=== PATIENT | female | born 1950 | race Caucasian/White ===

== ENCOUNTER → 2018-04-12 | Outpatient (CLI) | payer OTHER ==
[~2018-04-12] MED LIST: ACEDIPPM PO; ALBU90OI INH; ALLERGY RELIEF1 EAC1 PO; ATOR40TA PO; AZIT250 PO; Aerochamber1 EACH MC; Aspirin EC81 MG PO; Benicar Hct 401 EAC1 PO; CALCA500CH PO; CHOL10002 PO; CODGUAEL PO; Calcium Magnes1 EAC1 PO; DOCU100 PO; FERR325 PO; FERRETTS325 MG; FURO20 PO; GABA300 PO; METF500C PO; METO25ER PO; MONT10T PO; MULVITB&C PO; OTC ACID REDUCER; Prilosec Otc20 MG PO; RANI150 PO; SODCHL.65S; TUMS DUAL ACTI1 EACH PO
== END ==
LOC: LAB SHORT 14:33 → LAB 14:33
DX: E11.9 Type 2 diabetes mellitus without complications (principal)
CPT/HCPCS: 82043

== ENCOUNTER → 2018-04-25 | Outpatient (CLI) | payer OTHER ==
[2018-04-25 15:59] LABS: Alanine Aminotransfer (ALT/SGP 24 U/L (12-78); Albumin, Blood 3.4 g/dL (3.4-5.0); Alk Phos 88 U/L (50-136); Anion Gap 12 mmol/L (6-16); Aspartate Aminotrans (AST/SGOT 16 U/L (12-37); Bilirubin, Total 0.5 mg/dL (0.1-1.0); Blood Urea Nitrogen 15 mg/dL (8-24); Bun/Creatinine Ratio 19.4 (12.0-20.0); CHOL/HDL RATIO 2.2; CO2, Blood 23 mmol/L (21-32); Chloride, Blood 94 mmol/L (98-108); Cholesterol 101 mg/dL (50-200); Creatinine, Blood 0.77 mg/dL (0.40-1.00); Globulin, Blood 3.5 g/dL (2.2-4.0); Glomerular Filtration Rate >60 (60-); Glucose, Blood 89 mg/dL (70-99); HDL Cholesterol 45 mg/dL (>39); LDL/HDL RATIO 0.8; Low Density Lipoprotein Chol 38 mg/dL (0-110); Potassium, Blood 4.3 mmol/L (3.5-5.5); Sodium, Blood 129 mmol/L (136-145); Total Protein, Blood 6.9 g/dL (6.4-8.2); Triglycerides 90 mg/dL (30-160); Very Low Density Lipoprot Chol 18 mg/dL (6-32)
== END | disposition home or self-care (01) ==
LOC: LAB SHORT 08:24 → LAB 08:24
PROVIDERS: Nurse Practitioner Primary Care
DX: Z13.89 Encounter for screening for other disorder (principal)
CPT/HCPCS: 36415; 80053; 80061; 84443

== ENCOUNTER 2019-08-17 09:37 | Day surgery (SDC) | payer OTHER ==
[~2019-08-17] VITALS: Ht 167.6 cm; Wt 106.0 kg
[~2019-08-17 09:37] MED LIST changes: +ALLERGY RELIEF1 EAC2 PO; +ATOR40TA; +CALCIUM-MAGNES1 EAC3 PO; +Cymbalta20 MG PO; +DEEP SEA44 ML; +Ferrous Sulfat325 MG PO; +METFORMIN HCL500 MG PO; +METOPROLOL SUCC25 MG PO; +OMEP20ER PO; +Singulair10 MG PO; +TUMS ULTRA ST1177 MG PO; +VITAMIN D350 MCG PO
--- NOTE | 2019-08-17 10:56 | NUR ---
08/17/19 1056 Delores Krishna FIRST IV WAS IN RIGHT HAND
[2019-08-20] MEDS ORDERED: CLON.5 PO (15:15)
[2019-08-20] MEDS ORDERED: TOPROL XL25 MG PO (15:15)
[2019-08-20] MEDS ORDERED: GABA400 PO (15:16)
== END 2019-08-17 12:39 | disposition home or self-care (01) ==
LOC: ORSCSDS 09:37
PROVIDERS: Surgery
PROC: 0DJ08ZZ Inspection of Upper Intestinal Tract, Via Natural or Artificial Opening Endoscopic (ICD-10-PCS; principal; 2019-08-17 11:30)
DX: G90.3 Multi-system degeneration of the autonomic nervous system (principal); R13.14 Dysphagia, pharyngoesophageal phase; K44.9 Diaphragmatic hernia without obstruction or gangrene; K21.9 Gastro-esophageal reflux disease without esophagitis; E11.9 Type 2 diabetes mellitus without complications; Z79.84 Long term (current) use of oral hypoglycemic drugs; Z79.899 Other long term (current) drug therapy
CPT/HCPCS: 82947; J0690; J2704

== ENCOUNTER 2019-08-21 09:03 | Inpatient (IN) | payer OTHER ==
[~2019-08-21] VITALS: Ht 167.6 cm; Wt 89.1 kg
[~2019-08-21 09:03] MED LIST changes: +CLON.5 PO; +GABA400 PO; +TOPROL XL25 MG PO
--- NOTE | 2019-08-21 10:37 | NUR ---
Ambulatory in Day Surgery. Surgical site prepped with 2% Chlorhexidine cloth wipe. Lungs clear T/O to Auscultation Pre-Op teaching done. Pt verbalizes understanding. Patient States Post-Procedure ride home has been arranged. THE PATIENT WAS TRANSFERRED TO ROOM #230 TO WAIT FOR SURGERY THAT WAS POSPONED DUE TO PATIENT EATING THIS MORING AT 0600. REPORT WAS GIVEN TO SURGERY FLOOR NURSE, GAMAL ANNE AT THE TIME THE PATIENT WAS DELIVERED TO THE FLOOR, AT 1030 AM.
--- NOTE | 2019-08-21 11:04 | NUR ---
ARRIVAL TO UNIT ARRIVAL TO UNIT FROM DAY SURGERY. NPO UNTIL PROCEDURE WHICH IS SCHEDULED AT APPROX 1400. LR IVF RUNNING AT TKO PER DAY SURGERY. DAY SURGERY RN VERBALIZED NOT TO GIVE THE ABX--TO BE GIVEN IN OR PER DR ORDERS. PT ABLE TO STAND FROM GURNEY TO BED WITH 1 SBA. PT DOES HAVE EXPRESSIVE APHASIA AND COMMUNICATES NEEDS WITH A NOTEPAD. AT BEDSIDE FOR SUPPORT. ORIENTED TO UNIT AND CALL LIGHT. CALL LIGHT WITHIN REACH.
--- NOTE | 2019-08-21 13:38 | NUR ---
PT BEING PICKED UP BY DAY SURGERY. CHART AND ABX SENT WITH DAY SURGERY RN.
--- NOTE | 2019-08-21 14:15 | NUR ---
PT RETURNED TO [facility] FOR SURGERY. PT ALERT AND ORIENTED BUT COMMUNICATES WRITING ON PAPER.
--- NOTE | 2019-08-21 19:05 | NUR ---
recvd report from previous shift GAMAL Singh. pt sitting in chair, a/o x 4, non-verbal with writing pad. call light within reach, chair alarm in place.
--- NOTE | 2019-08-22 | NUR ---
while pt was standing to walk into the bathroom, BUSINESS PROCESS ANALYST assisting noticed the J-tube tubing on the floor. Upon assessment, drain completely out, dressing in place. notifed MD, received orders to attempt reinsertion, determine if J-tube will reinsert without resistance. If this is the case, place J-Tube and secure. If tube will not reinsert, notify MD. Both clinical coordinator and this RN attempt reinsertion, meeting resistance, tubing felt to be coiling. DIscontinued attempt, place sterile dressing over site, notifed MD who will surgically replaced J-tube with add-on procedure. received orders for IV abx and DC blood thinner
--- NOTE | 2019-08-22 05:43 | NUR ---
SHIFT SUMMARY: VSS, NO ACUTE CHANGES, PT REMAINED A/O X 4, NONVERBAL USING PAD TO COMMUNICATE. SEE NOT REGARDING J-TUBE DETACHING. J-TUBE SITE REMAINED WNL. PT DENIES PAIN AT SIDE. PT WITH HEADACHE THIS SHIFT, MEDICATED PER NOV. PT VOIDING >500 ML YELLOW CLEAR URINE, STANDBY ASSIST TO BATHROOM. NO N/V. REMAINED NPO T/O SHIFT. PT STATES SHE FEELS "UNCOMFORTABLE" AND FEELS SOB, CANNOT LIFT HER HEAD. PROVIDED PT WITH O2 VIA NC, REPOSITIONED MULTIPLE TIMES IN ATTEMPTS TO HELP PT FEEL COMFORTABLE. PT CURRENTLY SLEEPING SITTING UP IN BED
--- NOTE | 2019-08-22 13:32 | NUR ---
PT TO DAY SURGERY
--- NOTE | 2019-08-22 14:49 | NUR ---
08/22/19 1449 Christian Aguilera PATIENT ON SCHEDULED ANTIBIOTICS
--- NOTE | 2019-08-22 16:52 | NUR ---
SHIFT SUMMARY PT CURRENTLY STILL IN OR FOR J TUBE PLACEMENT. PRE-OPERATIVELY, PT WAS A+O. COMMUNICATING NEEDS BY WRITING ON NOTEPAD R/T HAVING HX OF EXPRESSIVE APHASIA. 1 MINIMAL ASSIST WHEN OOB. DENIED PAIN + N/V. AT BEDSIDE FOR SUPPORT. CALL LIGHT WITHIN REACH.
--- NOTE | 2019-08-22 17:52 | NUR ---
1730- PT SLIGHTLY AGITATED AND WANTING TO SIT UP. WROTE "HELP" ON NOTEPAD. WITHIN SECONDS PT COLOR BECAME VERY PALE AND SATS DROPPED DOWN TO 26% BAG MASK VENTILATIONS STARTED AND CODE 4 CALLED. HEART RATE STRONG AND REGULAR. QUICK RETURN OF SPONTANEOUS RESPIRATIONS. 1736-PT PLACED ON 5L O2 PER NC BY RT. 1745-O2 SAT 95% ON 5L/NC. RESP RATE 95%
--- NOTE | 2019-08-22 17:55 | NUR ---
UPDATED PT'S SPOUSE SHAHIDA ON BEING TRANSFERRED TO ROOM ICU 9 POST OP. WILL CALL AND GIVE ICU REPORT AND TAKE PT'S PERSONAL BELONGINGS TO ICU 9.
--- NOTE | 2019-08-22 18:24 | NUR ---
REPORT GIVEN TO JN YEUNG ICU. PT PERSONAL BELONGINGS AND MEDICATIONS BROUGHT TO ROOM ICU 9.
--- NOTE | 2019-08-22 18:25 | NUR ---
PT TO UNIT FROM OR POST CODE BLUE FOR RESP ISSUES. PT ARRIVES ON 3L O2 VIA NC, O2 SATS MID 90'S. PT NON VERBAL. USES PAD TO WRITE. WRITES THAT HER MOUTH IS DRY. DENIES PAIN. REPORTS SOB WHEN LAYING FLAT. POSITIONED FOR COMFORT. LUNGS DIMINISHED IN BASES, CLEAR IN UPPER LOBES. SHALLOW RESP. DRESSINGS TO ABD, C/D/I. J TUBE TO LEFT ABD, CAPPED. FLIGHT TEST ENGINEER BROUGHT TUBE FEEDS FROM FLOOR. WILL CONSULT c SURGEON PRIOR TO STARTING TUBE FEEDS. ELECTRICAL ENGINEERING TECHNICIAN CONSULTED, INTERFACE DESIGNER NOTIFIED. VSS. REPORT TO ONCOMING NURSE.
[2019-08-22 20:29] LABS: BASOPHILS ABSOLUTE AUTO 0.01 K/mm3 (0.00-0.23); BASOPHILS PERCENT AUTO 0 % (0-2); EOSINOPHILS PERCENT AUTO 0 % (0-6); Hematocrit 37.9 % (33.0-51.0); Hemoglobin 11.6 g/dL (11.5-16.0); IMMATURE GRAN ABSOLUTE AUTO 0.07 K/mm3 (0.00-0.10); IMMATURE GRAN PERCENT AUTO 1 % (0-1); LYMPHOCYTES ABSOLUTE AUTO 0.64 K/mm3 (0.84-5.20); LYMPHOCYTES PERCENT AUTO 5 % (21-46); MONOCYTES ABSOLUTE AUTO 1.36 K/mm3 (0.16-1.47); MONOCYTES PERCENT AUTO 10 % (4-13); Mean Corpuscular HGB 28.9 pg (26.0-34.0); Mean Corpuscular HGB Conc 30.6 g/dL (31.5-36.5); Mean Corpuscular Volume 95 fL (80-100); Mean Platelet Volume 9.5 fL (9.1-12.4); NEUTROPHILS ABSOLUTE AUTO 11.53 K/mm3 (1.96-9.15); NEUTROPHILS PERCENT AUTO 85 % (41-73); Platelet Count 306 K/mm3 (150-400); RDW Coefficient Variation 14.3 % (11.7-14.2); RDW Standard Deviation 49.7 fL (35.1-46.3); Red Blood Cell Count 4.01 M/mm3 (3.80-5.20); White Blood Cell Count 13.61 K/mm3 (4.00-11.30)
[2019-08-22 20:45] LABS: Anion Gap 3 mmol/L (6-16); Blood Urea Nitrogen 21 mg/dL (8-24); Bun/Creatinine Ratio 37.2 (12.0-20.0); CO2, Blood 33 mmol/L (21-32); Calcium, Blood 9.3 mg/dL (8.5-10.1); Chloride, Blood 102 mmol/L (98-108); Creatinine, Blood 0.56 mg/dL (0.40-1.00); Glomerular Filtration Rate >60 (60-); Glucose, Blood 119 mg/dL (70-99); Potassium, Blood 4.4 mmol/L (3.5-5.5); Sodium, Blood 138 mmol/L (136-145)
[2019-08-22 21:15] LABS: Base Excess Venous 6.5 mmol/L; PCO2 Venous 80.2 mmHg (38-42); PO2 Venous 58.1 mmHg (38-42)
[2019-08-22 21:16] LABS: pH Blood Venous 7.24 (7.34-7.37)
--- NOTE | 2019-08-22 21:26 | NUR ---
ASSUME CARE PT ALERT, COMMUNICATES WITH NOTEPAD AND MARKER. FOLLOWS COMMANDS. PT ABDOMINAL DRESSINGS C/D/I. NO COMPLAINTS OF PAIN. PT MADE NPO PER SENIA JONES. PT SATS ABOVE 92% ON 3L NC. SKIN INTACT, SOME REDNESS NOTED ON GLUTEAL FOLDS. HR 120S. AFEBRILE. WILL CONTINUE TO MONITOR
--- NOTE | 2019-08-22 21:37 | NUR ---
RESP STATUS VENOUS BG CRITICAL PH 7.24. PULMONONOLOGIST NOTIFIED. BIPAP ORDERED. PT REFUSING. PT CURRENTLY AT 3L NC SATS 96%, NO INCREASED WOB. WILL CONTINUE TO MONITOR.
[2019-08-23 04:12] LABS: Anion Gap 4 mmol/L (6-16); Blood Urea Nitrogen 21 mg/dL (8-24); Bun/Creatinine Ratio 37.8 (12.0-20.0); CO2, Blood 34 mmol/L (21-32); Calcium, Blood 9.3 mg/dL (8.5-10.1); Chloride, Blood 101 mmol/L (98-108); Creatinine, Blood 0.56 mg/dL (0.40-1.00); Glomerular Filtration Rate >60 (60-); Glucose, Blood 90 mg/dL (70-99); Magnesium, Blood 1.6 mg/dL (1.6-2.4); Phosphorus, Blood 2.6 mg/dL (2.5-4.9); Potassium, Blood 4.4 mmol/L (3.5-5.5); Sodium, Blood 139 mmol/L (136-145)
--- NOTE | 2019-08-23 06:13 | NUR ---
SHIFT SUMMARY PT ALERT, FC. COMPLAINING OF HEART BURN ( SAYS ITS A CHRONIC ISSUE). PT ON AIRVO 35L, 40% AND TOLERATING WELL. SATS ABOVE 95%. HR 110-120S THROUGHOUT SHIFT. AFEBRILE. WILL CONTINUE TO MONITOR UNTIL SHIFT REPORT TO DAY NURSE.
--- NOTE | 2019-08-23 07:30 | NUR ---
ASSUMED CARE AT 0700. REPORT FROM PEREZ YEUNG. PT RESTING IN BED. WAKES c VERBAL STIMULI. COMMUNICATES THOUGH MOTIONING AND WRITING. C/O MOUTH BEING DRY. SWABS PROVIDED. PT ON AIRVO 35L, 40% FIO2. SATS > 95%. LUNGS DIMINSED IN BASES. DRESSINGS C/D/I TO ABD. J TUBE IN PLACE. ABD ROUND, SOFT, NON TENDER. 2+ EDEMA TO LOWER LEGS BILATERALLY. MAINTAIN NPO STATUS AT THIS TIME. ASSISTED PT TO CHAIR. CALL LIGHT IN REACH. WILL CONTINUE TO MONITOR.
--- NOTE | 2019-08-23 08:42 | NUR ---
DR FOSTER AT BEDSIDE FOR ASSESSMENT. OK'D USE OF J TUBE FOR TUBE FEEDS. REQUESTED THAT FEEDS BE STARTED AT LOWER RATE THAN ORDERED. OK'D FOR FULL LIQUIDS. WILL REMAIN NPO UNTIL DR CEDENO IS CONSULTED. REQUESTED HOSP CONSULT IF PT TRANSFERRED OUT OF ICU.
[2019-08-23 09:01] LABS: BASOPHILS ABSOLUTE AUTO 0.02 K/mm3 (0.00-0.23); BASOPHILS PERCENT AUTO 0 % (0-2); EOSINOPHILS PERCENT AUTO 0 % (0-6); Hematocrit 36.8 % (33.0-51.0); Hemoglobin 11.2 g/dL (11.5-16.0); IMMATURE GRAN ABSOLUTE AUTO 0.04 K/mm3 (0.00-0.10); IMMATURE GRAN PERCENT AUTO 0 % (0-1); LYMPHOCYTES ABSOLUTE AUTO 0.59 K/mm3 (0.84-5.20); LYMPHOCYTES PERCENT AUTO 6 % (21-46); MONOCYTES ABSOLUTE AUTO 1.05 K/mm3 (0.16-1.47); MONOCYTES PERCENT AUTO 10 % (4-13); Mean Corpuscular HGB 28.9 pg (26.0-34.0); Mean Corpuscular HGB Conc 30.4 g/dL (31.5-36.5); Mean Corpuscular Volume 95 fL (80-100); Mean Platelet Volume 9.7 fL (9.1-12.4); NEUTROPHILS ABSOLUTE AUTO 9.12 K/mm3 (1.96-9.15); NEUTROPHILS PERCENT AUTO 84 % (41-73); Platelet Count 279 K/mm3 (150-400); RDW Coefficient Variation 14.6 % (11.7-14.2); RDW Standard Deviation 50.5 fL (35.1-46.3); Red Blood Cell Count 3.87 M/mm3 (3.80-5.20); White Blood Cell Count 10.82 K/mm3 (4.00-11.30)
--- NOTE | 2019-08-23 09:51 | NUR ---
DR CEDENO AT BEDSIDE FOR ASSESSMENT. CODE STATUS DISCUSSED c PT AND SHAHIDA. PT WISHES TO BE DNR/DNI. PALLATIVE CARE CONSULTED. PLAN FOR TRANSFER TO SURGICAL FLOOR. LICHA BRUCE CALLED FOR CONSULT PER DR FOSTER.
--- NOTE | 2019-08-23 11:58 | NUR ---
REPORT TO [facility] TRANSPLANT NETWORK MANAGER. PT AND ALL BELONGINGS TO ROOM 208. GRETA PINEDO, UPDATED.
--- NOTE | 2019-08-23 15:20 | NUR ---
PT REPORTS DIFFICULTLY BREATHING AT THIS TIME. LUNGS ARE DIM AND CLEAR AT THIS TIME. PT BREATHES SHALLOW, SATS ARE AT 88% ON 2L. INCREASED TO 3L O2. RR IS 24. RESPIRATORY CARE CALLED AND ABHIJIT RT SEEING PT AT THIS TIME
--- NOTE | 2019-08-23 16:00 | NUR ---
BEDSIDE REPORT RECEIVED FROM SURGICAL FLOOR RN. PT WAS TRANSPORTED VIA GURNEY, ASSUMED CARE OF PT. APPARENT S/S RESPIRATORY DISTRESS NOTED, BIPAP MACHINE IN USE, PT TOLERATING WELL. REPOSITIONED FOR COMFORT, CALL LIGHT AND POSSESSIONS IN REACH. AT THE BEDSIDE. DENIES ANY FURTHER NEEDS AT THIS TIME.
--- NOTE | 2019-08-23 16:10 | NUR ---
The pt arrived from surgical floor, bedside report was received from GAMAL Chavira. Pt is presently wearing a vision bipap, 60% fi02 setting 08/10 and respiratory rate is 29-31 bpm. She is tolerating the bipap without any struggle; in fact, she appears to be very relaxed, sitting up right with her eyes opening occasionally. Vital signs taken and documented .
--- NOTE | 2019-08-23 16:15 | NUR ---
TRANSFER TO PCU: PT REPORTED DIFFICULTLY BREATHING AT ABOUT 1530 AFTER BEING EVALUATED BY RT, THIS TIME REPORTING THAT IT IS WORSE. WINDOW DRAPER IS IN ROOM ALONG WITH LORI WEBSTER, UPON THIS RN'S ARRIVAL. WITH ASSESSMENT PT SEEMS TO BE GASPING FOR AIR. PT IS SITTING UP STRAIGHT. SATURATIONS ARE IN THE 80'S, PT SWITCHED FROM NC TO OXIMIZER. O2 SATS NOT MAINTAINED ABOVE 90% WITH OXIMIZER. RR IS 32, SEE VS. SOLEDAD BRUCE NOTIFIED AT THIS TIME AND BIPAP WITH TRANSFER TO PCU ORDERED. RT IN ROOM AND BIPAP STARTED AT ABOUT 1545. REPORT GIVEN TO RHETT SAMUELU RN AT ABOUT 1610 AT BEDSIDE IN PCU1
--- NOTE | 2019-08-23 16:48 | NUR ---
REPORT RECEIVED FROM RESTAURANT ATTENDANT, ALISA. PT TO ROOM 208 AT ABOUT 1205. UPON ASSESSMENT PT IS IN NO VISABLE DISTRESS, SURGICAL SITES WNL. POWERGLIDE FLUSHED AND ANTIBIOTIC GIVEN. PT HAS EXPRESSIVE APHASIA, ABLE TO WRITE ON NOTEPAD THAT SHE FEELS FINE BUT HAS DRY MOUTH. ORAL SWAB GIVEN. PT BP AND HR ARE HIGH, PT HAS A HX, WILL MED PER EMAR. SATS ARE ABOVE 90% ON 3L NC. NO ACUTE SAFETY CONCERNS AT THIS TIME. WILL CTM.
--- NOTE | 2019-08-23 16:54 | NUR ---
ACTIVE ORDER FOR FULL LIQUID DIET. THIS RN CONCERNED THAT PT WILL ASPIRATE IF GIVEN LIQUIDS. DR. FOSTER NOTIFIED OF THIS AT 1237. NEW ORDER FOR SPEECH EVAL ADDED. SEE SPEECH EVAL DOCUMENTATION.
--- NOTE | 2019-08-23 19:31 | NUR ---
Pt arrived from surgical floor room 208 at around 4 pm. Powerglide right arm flushed, noted WNL. The pt tolerated the bipap for 1.5 hours, and then wanted to have a break. She was assisted to the bedside commode while wearing n.c. at 5 l/min and tolerated this while maintaining spo2 greater than 92%. She wanted to get into a recliner chair after this, and she was assisted to do so. At approx 1845 she was assisted back into the bed and was short of breath, so the bipap was again placed on, which she tolerated without display of anxiety or agitation. At this time, she made her wishes known to take a break from the bipap, and is again on nasal cannula delivery of oxgyen at 5 l/min during bedside report, and tolerating it well.
--- NOTE | 2019-08-23 20:46 | NUR ---
PHARMACY CONTACTED PHARMACY FAXED FOR MEDICATION, MEFOXIN, AT APPROXIMATELY 1930 DURING SHIFT CHANGE. UNABLE TO LOCATE IN [place] OR MEDICATION DRAWERS IN PCU, OR SURGICAL FLOOR. MEDICATION SENT @ 2039 AND TO BE GIVEN NOW. CLARIFIED WITH PHARMACIST ABOUT CHANGES IN DOSING R/T LATE ADMINISTRATION. PHARMACY STATES TO GIVE DOSE NOW, GIVE 2400 DOSE @ 0200 AND THEN RESUME NORMAL Q6 SCHEDULE. WILL CONTINUE WITH ADMINISTRATION AND MONITORING.
--- NOTE | 2019-08-24 01:45 | NUR ---
PROVIDER CONTACTED PULSE OXIMETER SOUNDING AND PT FOUND TO BE WITH O2 SATS OF 70% ON 5L VIA NASAL CANNULA. PT APPEARS TO BE SLEEPING DEEPLY, ATTEMPTED TO WAKE PT WITH VERBAL STIMULI, AND THEN WITH PAINFUL STIMULI WITHOUT SUCCESS. BIPAP PLACED ON PATIENT WITH SETTINGS OF 12/6 FIO2 OF 35% INITIALLY, WHICH WAS INCREASED TO 85%. TIDAL VOLUMES <200 WITH THESE SETTINGS. RT TO ROOM WITHIN 3 MINUTES OF BIPAP PLACEMENT. PT REPOSITIONED AND SETTINGS ADJUSTED BY RT TO 18/8 35% FIO2 WITH SATS INCREASING TO >90% WITHIN 5 MINUTES OF ADJUSTMENT. PT STILL NOT ROUSING TO PAINFUL STIMULI OR MOVEMENT, VSS. DR GUEVARA CONTACTED AND UPDATED ON PATIENT CONDITION; ORDERS RECIEVED FOR STAT ABG. WILL INPUT ORDER AND CONTACT RT FOR BLOOD DRAW.
[2019-08-24 01:54] LABS: PO2 Arterial 73.2 mmHg (80-100)
[2019-08-24 01:55] LABS: PCO2 Arterial 85.5 mmHg (35-45); pH Blood Arterial 7.22 (7.35-7.45)
--- NOTE | 2019-08-24 02:00 | NUR ---
CRITICAL VALUE/PROVIDER CONTACTED CRITICAL VALUE ON ABG- SEE CV CHARTING. DR GUEVARA CONTACTED AND UPDATED ON ABG AND SETTING ADJUSTMENT BY RT. PHYSICIAN TO LOOK INTO PT CHART AND HISTORY AND VERBALIZED REPEAT ABG AFTER A FEW HOURS OF BIPAP USE. PT REMAINS LETHARGIC, VITAL SIGNS CURRENTLY STABLE AND O2 SATS REMAINING >90% ON BIPAP WITH SETTINGS OF 18/8 50% FIO2. WILL CONTINUE TO MONITOR CLOSELY.
[2019-08-24 04:43] LABS: BASOPHILS ABSOLUTE AUTO 0.01 K/mm3 (0.00-0.23); BASOPHILS PERCENT AUTO 0 % (0-2); EOSINOPHILS PERCENT AUTO 0 % (0-6); Hematocrit 38.5 % (33.0-51.0); Hemoglobin 11.6 g/dL (11.5-16.0); IMMATURE GRAN ABSOLUTE AUTO 0.23 K/mm3 (0.00-0.10); IMMATURE GRAN PERCENT AUTO 2 % (0-1); LYMPHOCYTES PERCENT AUTO 3 % (21-46); MONOCYTES ABSOLUTE AUTO 1.13 K/mm3 (0.16-1.47); MONOCYTES PERCENT AUTO 9 % (4-13); Mean Corpuscular HGB Conc 30.1 g/dL (31.5-36.5); Mean Corpuscular Volume 96 fL (80-100); NEUTROPHILS ABSOLUTE AUTO 11.23 K/mm3 (1.96-9.15); NEUTROPHILS PERCENT AUTO 86 % (41-73); Platelet Count 284 K/mm3 (150-400); RDW Coefficient Variation 14.7 % (11.7-14.2); RDW Standard Deviation 52.7 fL (35.1-46.3)
[2019-08-24 05:03] LABS: Anion Gap 4 mmol/L (6-16); Blood Urea Nitrogen 26 mg/dL (8-24); Bun/Creatinine Ratio 55.4 (12.0-20.0); CO2, Blood 35 mmol/L (21-32); Calcium, Blood 9.4 mg/dL (8.5-10.1); Chloride, Blood 102 mmol/L (98-108); Creatinine, Blood 0.47 mg/dL (0.40-1.00); Glomerular Filtration Rate >60 (60-); Glucose, Blood 132 mg/dL (70-99); Magnesium, Blood 1.7 mg/dL (1.6-2.4); Phosphorus, Blood 1.9 mg/dL (2.5-4.9); Potassium, Blood 4.1 mmol/L (3.5-5.5); Sodium, Blood 141 mmol/L (136-145)
--- NOTE | 2019-08-24 06:51 | NUR ---
SHIFT SUMMARY PT WITH MENTATION THAT HAS BEEN LABILE THROUGHOUT THE SHIFT. PT WAS INITIALLY AOX3, BUT SHIFTED TO LETHARGIC AND UNRESPONSIVE DURING THE NIGHT. PT IS MORE ALERT THIS AM AND ROUSING TO VERBAL STIMULI AFTER WEARING BIPAP FOR APPROXIMATELY 3-4 HOURS. PT HAS BEEN PLEASANT AND COOPERATIVE WITH CARE THROUHGOUT THE NIGHT. PT WITH HYPERTENSIVE EPISODES LAST NIGHT THAT DECREASED WITH ORDERED MEDICATIONS. O2 SATS HAVE REMAINED >88% ON BIPAP WITH SETTINGS OF 18/8 50% FIO2, NO FURTHER EPISODES OF SIGNIFICANT DESATURATION FROM PREVIOUS EPISODE. CHEST XRAY DONE THIS AM. NO OTHER CHANGES NOTED FROM INITIAL ASSESSMENT .WILL CONTINUE TO MONITOR AND REPORT TO ONCOMING SHIFT RN. BED IN LOW POSITION, CALL LIGHT IN REACH. BED ALARM SET FOR SAFETY.
--- NOTE | 2019-08-24 07:32 | NUR ---
START OF SHIFT NOTE: RECEIVED REPORT FROM GAMAL MARTINES, ASSUMED CARE, ENTERED ROOM AND FOUND O2 ALARMING, UNABLE TO AROUSE PATIENT, REMOVED NASAL CANNULA AND PLACED BIPAP, FiO2 UP TO 100 %, RT NOTIFIED AND IN ROOM, DR JIMENES NOTIFIED, PATIENT UNAROUSEABLE DESPITE STERNAL RUBS, AND HR IN 129'S, PATIENT IS ON TF AT 25 CC/HR WILL INCREASE TO 35 CC/HR WITH GOAL OF 5O CC/HR, PATIENT ALSO ON LR AT 100 CC/HR, PWG AT RIGHT UPPER ARM, DR. JIMENES NOTIFIED, BIPAP SETTINGS ARE 20/8 WITH FiO2 AT 100 %, DR. JIMENES AT BEDSIDE, POSSIBLE TRANSFER TO ICU, PATIENT HAS PEG TUBE IN LLQ, ATTENDS IN PLACE, CALL LIGHT IN REACH, WILL CONTINUE TO MONITOR.
--- NOTE | 2019-08-24 07:57 | NUR ---
PATIENT WILL BE TRANSFERED TO ICU ROOM 11, BEDSIDE REPORT GIVEN TO ANDRESSA BROWN, ICU CHARGE, WILL MOVE PATIENT WITH BED AND BIPAP, WELL IVF AND TUBE FEED.
--- NOTE | 2019-08-24 08:27 | NUR ---
PATIENT TRANSFERRED TO ROOM ICU [address] J[address].
--- NOTE | 2019-08-24 08:57 | NUR ---
TELEPHONE REPORT GIVEN TO BRIAN MURO RN.
--- NOTE | 2019-08-24 09:39 | NUR ---
LEXIE MURO, RN ASSUMED CARE OF PATIENT AFTER RETURN FROM CT SCAN WITH OTHER PATIENT. PATIENT WAS TX'D FROM PCU 1 FOR DECREASED LOC. ON BIPAP WITH FI02 90% BIPAP SETTINGS IPAP 20; EPAP 8. BACK UP RR RATE OF 14. WHILE PERFORMING ORAL CARE, THIS RN NOTED GREEN ASPIRATE IN BACK OF THROAT. IT ALSO LOOKED LIKE PATIENT WAS OCCLUDING HER AIRWAY. NASAL TRUMPET PLACED AND NT SX PERFORMED. GREEN ASPIRATE AGAIN FROM AIRWAY AND THEN PATIENT VOMITED GREEN EMESIS. CONTACTED DR. JIMENES AND REC'D ORDER FOR NGT. PATIENT WAS ON OXYMIZER 15 L DURING ORAL CARE AND NT SX. BIOX BETWEEN 88% AND 90%. IMMEDIATE RETURN OF 1L GREEN FLUID WITH REGULAR SX. PLACED ON LIS. BIOX TO 96% O2 TITRATED FIRST TO 4L AND THEN TO 2L AND PATIENT REMAINED AT 96% RT FATMATA PERFORMED ABG AFTER NC TO 2L. CRITICAL HIGH CO2 REPORTED BY RT FATMATA. PATIENT PLACED BACK ON BIPAP MASK AT PREVIOUS SETTINGS WITH FIO2 AT 50%
[2019-08-24 09:42] LABS: PO2 Arterial 107 mmHg (80-100); pH Blood Arterial 7.13 (7.35-7.45)
[2019-08-24 09:43] LABS: PCO2 Arterial > 105 mmHg (35-45)
--- NOTE | 2019-08-24 13:44 | NUR ---
PATIENT TOOK OFF BIPAP MASK AND GRIPPED NGT WITH BOTH HANDS TIGHTLY. RESTRAINED HER HANDS TO ATTEMPT ORAL CARE. BREATHING BECAME AGONAL. HR TO 28. LEFT MESSAGE FOR TO CALL. BIPAP MASK PLACED BACK ON. HR 113 AND BIOX 93%
--- NOTE | 2019-08-24 14:05 | NUR ---
IN. HE WAS DRIVING AND DIDN'T RECEIVE MESSAGE TO CALL. EXPLAINED WHAT HAPPENED EARLIER WHEN BIPAP MASK WAS OFF. WANTS MASK REMOVED AND PATIENT ALLOWED TO PASS NATURALLY.
--- NOTE | 2019-08-24 14:31 | NUR ---
Called to ICU as pt's has chosen to make her comfortable and allow her to naturally. Color is very pale. She has agonal respirations with periods of apnea lasting 30-60 seconds at a time. NGT in place with green fluid. IVF placed on standby as pt is activly dying. She appears peaceful at this time. Harrison is at her bedside holding her hand and talking to her and telling her that it is okay to go. Harrison appears to peace with the decision for comfort care. He spoke openly about their love for each other and reminisced about the 20 years that they have been able to spend together. This contract technical writer left the room once At Risk Paraprofessional Jose Alfredo arrived at bedside to support Harrison. Harrison declined any needs prior to this contract technical writer leaving the room. PC will remain avaialable as needed.
--- NOTE | 2019-08-24 14:36 | NUR ---
PATIENT 1430. AND ANDERSON (MAX NAVARRO) AT BEDSIDE.
--- NOTE | 2019-08-24 14:47 | NUR ---
Patient is in transition with spouse Harrison bedside. I conduct a life review and while Víctor and I are laughing patient's RN comes in and informs us that patient has . I gathered information and provided a prayer of committal of patient and of comfort for Harrison. I walk Harrison out to his car while he tells me more funny stories.
== END 2019-08-24 16:28 | DRG 391 ==
LOC: ORSCMMR 09:03 → ICUW 10:22 → SURS 10:22 → ICUW 08-22 18:05 → SURS 08-23 11:59 → PCU 08-23 15:59 → ICUW 08-24 08:14
PROVIDERS: Internal Medicine; Internal Medicine Critical Care Medicine; Nurse Practitioner Acute Care; ADMIT Surgery
PROC: 8E0W4CZ Robotic Assisted Procedure of Trunk Region, Percutaneous Endoscopic Approach (ICD-10-PCS; 2019-08-21)
PROC: 0DHA3UZ Insertion of Feeding Device into Jejunum, Percutaneous Approach (ICD-10-PCS; principal; 2019-08-21 14:00)
PROC: 0DHA0UZ Insertion of Feeding Device into Jejunum, Open Approach (ICD-10-PCS; 2019-08-22)
PROC: 5A09357 Assistance with Respiratory Ventilation, Less than 24 Consecutive Hours, Continuous Positive Airway Pressure (ICD-10-PCS; 2019-08-24)
DX: R13.12 Dysphagia, oropharyngeal phase (principal); J69.0 Pneumonitis due to inhalation of food and vomit; J96.21 Acute and chronic respiratory failure with hypoxia; Z51.5 Encounter for palliative care; G90.3 Multi-system degeneration of the autonomic nervous system; Z79.82 Long term (current) use of aspirin; Z79.84 Long term (current) use of oral hypoglycemic drugs; I25.10 Atherosclerotic heart disease of native coronary artery without angina pectoris; K21.9 Gastro-esophageal reflux disease without esophagitis; I10 Essential (primary) hypertension; E66.01 Morbid (severe) obesity due to excess calories; Z68.33 Body mass index [BMI] 33.0-33.9, adult; G31.9 Degenerative disease of nervous system, unspecified; K44.9 Diaphragmatic hernia without obstruction or gangrene; F40.240 Claustrophobia; G47.33 Obstructive sleep apnea (adult) (pediatric)
CPT/HCPCS: 36415; 36600; 49465; 71045; 80048; 82803; 82947; 83036; 83735; 84100; 85025; 92610; 94660; 94762; C1729; C1751; C1769; J0330; J0360; J0694; J1100; J1170; J2250; J2310; J2370; J2405; J2704; J2710; J3010; J7120; Q9963